=== PATIENT | female | born 1955 | race Caucasian/White ===

== ENCOUNTER 2016-07-30 18:54 | Emergency (ER) | payer OTHER ==
[~2016-07-30] VITALS: Ht 152.4 cm; Wt 65.0 kg
[~2016-07-30 18:54] MED LIST: LISI-360 PO; ZOLP10TA3 OR
[2016-07-30 18:56] VITALS: BP 182/87; PULSE 71; RESP 18; TEMP 97.7; O2SAT 100
--- NOTE | 2016-07-30 19:08 | PD ---
Physical Exam Time Seen by Provider: 19:06 Narrative 60yo F c/o lower abd pain and rectal bleeding that started at approx 1pm today. Hx of hemorrhoids but nothing like this in the past. Denies F,N,V. Patient seen in triage. VS reviewed. Awaiting bed placement. Data Data Last Documented VS Vital Signs Date Time Temp Pulse Resp B/P Pulse Ox O2 Delivery O2 Flow Rate FiO2 07/30/16 18:56 97.7 71 18 182/87 100 Room Air MDM Supervised Visit with BRIONNA: Sanna Santana July 30, 2016 19:08
[2016-07-30] MEDS ORDERED: ZOLP10TA3 PO (19:32)
[2016-07-30] MEDS ORDERED: LISI10TA3 PO (19:32)
[2016-07-30] MEDS ORDERED: ATOR20TA15 PO (19:32)
[2016-07-30] MEDS ORDERED: SODIUM CHLOR 0.9% 1000 ML INJ 1,000 ML IV SCH (19:34)
[2016-07-30] MEDS ORDERED: CHOL1CAP32 (19:35)
[2016-07-30] MEDS ORDERED: FIBECHW (19:35)
[2016-07-30] MEDS ORDERED: FISH1200 (19:35)
[2016-07-30] MEDS ORDERED: MULT-112 (19:35)
[2016-07-30] MEDS ORDERED: INUL6.5C (19:35)
[2016-07-30] MEDS ORDERED: MULT-65 PO (19:35)
[2016-07-30] MEDS ORDERED: MELA1TAB18 PO (19:35)
[2016-07-30] MEDS ORDERED: MELA3TAB (19:35)
[2016-07-30] MEDS ORDERED: MORPHINE SULFATE 4 MG/ML INJ IV PUSH ONE (19:45)
[2016-07-30] MEDS ORDERED: ONDANSETRON HCL 4 MG/2 ML VIAL IVP ONE (19:45)
[2016-07-30] MEDS ORDERED: SODIUM CHLORIDE 0.9% FLUSH 10 ML FLUSH IV FLUSH PRN (19:45)
[2016-07-30 20:02] LABS: AUTOMATED NEUTROPHIL # 16.6 TH/MM3 (1.8-7.7); BASOPHIL # 0.1 TH/MM3 (0-0.2); BASOPHIL % 0.5 % (0.0-2.0); EOSINOPHIL % 0.1 % (0.0-4.0); HEMATOCRIT 42.7 % (35.0-46.0); HEMO FLAGS DIFF FINAL; LYMPH % 11.4 % (9.0-44.0); LYMPHOCYTE # 2.3 TH/MM3 (1.0-4.8); MEAN CORPUSCULAR HEMOGLOBIN 31.2 PG (27.0-34.0); MEAN CORPUSCULAR HGB CONC 33.5 % (32.0-36.0); MONO % 6.3 % (0.0-8.0); NEUT % 81.7 % (16.0-70.0); PLATELET COUNT 437 TH/MM3 (150-450); RED BLOOD COUNT 4.59 MIL/MM3 (4.00-5.30); WHITE BLOOD COUNT 20.4 TH/MM3 (4.0-11.0)
[2016-07-30 20:10] LABS: APTT (PATIENT) 25.4 SEC (24.3-30.1); PROTHROMBIN TIME - PATIENT 10.5 SEC (9.8-11.6)
--- NOTE | 2016-07-30 20:17 | PD ---
HPI Chief Complaint: GI Complaint Time Seen by Provider: 19:17 Travel History International Travel<30 days: No Contact w/Intl Traveler<30days: No Traveled to known affect area: No History of Present Illness HPI Patient is a 60-year-old female who presents to emergency room with complaints of lower abdominal pain. Patient reports that she has been having increased lower abdominal pain since this afternoon. Patient reports that she was riding her bike and had severe lower abdominal pain, reports that she went home and had a bowel movement. Patient reports that she had a normal bowel movement which was light brown in color, reports that shortly thereafter, she had the urge to use the bathroom again and reports that she had a bloody bowel movement. Reports that she had bright red blood in her stools. Patient reports that she continues to have lower abdominal crampy pain. Patient reports no nausea or vomiting, denies fevers or chills. Denies any constipation or diarrhea. Patient that she initially reported having severe pelvic pain, patient reports that she really has lower abdominal pain. Patient has had a colonoscopy last year in October, patient was found to have hemorrhoids and otherwise benign colonoscopy. Patient's naphthalene still operator is Dr. Raymundo. Patient denies vaginal discharge or bleeding. Denies dysuria/ urgency/frequency. PFSH Past Medical History High Cholesterol: Yes Diabetes: Yes (diet controlled) Patient Takes Glucophage: No Gastrointestinal Disorders: Yes (internal hemorrhoids) Hypertension: Yes Insomnia: Yes : 2 Para: 2 Past Surgical History Section: Yes (x2) Other Surgery: Yes (spleenectomy, partial pancreas removal) Social History Alcohol Use: No Tobacco Use: No Substance Use: No Allergies-Medications (Allergen,Severity, Reaction): Coded Allergies: No Known Allergies (Unverified , 07/30/16) Reported Meds & Prescriptions Reported Meds & Active Scripts Active Reported Melatonin 10 Mg Tab 10 Mg PO HS PRN Vision Formula/Lutein (Multiple Vitamins W/ Minerals) 1 Tab Tab D3-1000 (Cholecalciferol) 1,000 Unit Cap Fish Oil 1200 mg (Sproul-3 Fatty Acids) 1 Cap Cap Fiber Select Gummies (Fiber) 1 Chw Chw Multi-Vitamin Daily (Multiple Vitamin) 1 Tab Tab 1 Tab PO DAILY Atorvastatin (Atorvastatin Calcium) 20 Mg Tab 20 Mg PO HS Zolpidem (Zolpidem Tartrate) 10 Mg Tab 10 Mg PO HS PRN Lisinopril 10 Mg Tab 10 Mg PO DAILY Review of Systems General / Constitutional: No: Fever, Chills Eyes: No: Visual changes HENT: No: Headaches Cardiovascular: No: Chest Pain or Discomfort Respiratory: No: Shortness of Breath Gastrointestinal: Positive: Abdominal Pain, Hematochezia, No: Nausea, Vomiting , Diarrhea Genitourinary: No: Dysuria Musculoskeletal: No: Pain Skin: No Rash Neurologic: No: Weakness Psychiatric: No: Depression Endocrine: No: Polydipsia Hematologic/Lymphatic: No: Easy Bruising Physical Exam Narrative GENERAL: mild distress SKIN: Focused skin assessment warm/dry. HEAD: Atraumatic. Normocephalic. EYES: Pupils equal and round. No scleral icterus. No injection or drainage. ENT: No nasal bleeding or discharge. Mucous membranes pink and moist. NECK: Trachea midline. No JVD. CARDIOVASCULAR: Regular rate and rhythm. No murmur appreciated. RESPIRATORY: No accessory muscle use. Clear to auscultation. Breath sounds equal bilaterally. GASTROINTESTINAL: Abdomen soft, tenderness to lower abdomen with no rebound or guarding Rectal exam: nonthrombosed external hemorrhoids, mildly heme positive mucousy blood tinged stool which is light brown MUSCULOSKELETAL: No obvious deformities. No clubbing. No cyanosis. No edema. NEUROLOGICAL: Awake and alert. No obvious cranial nerve deficits. Motor grossly within normal limits. Normal speech. PSYCHIATRIC: Appropriate mood and affect; insight and judgment normal. Data Data Last Documented VS Vital Signs Date Time Temp Pulse Resp B/P Pulse Ox O2 Delivery O2 Flow Rate FiO2 07/30/16 19:08 16 07/30/16 18:56 97.7 71 182/87 100 Room Air Orders Complete Blood Count With Diff (07/30/16 19:34) Comprehensive Metabolic Panel (07/30/16 19:34) Lipase (07/30/16 19:34) Prothrombin Time / Inr (Pt) (07/30/16 19:34) Act Partial Throm Time (Ptt) (07/30/16 19:34) Urinalysis - C+S If Indicated (07/30/16 19:34) Ct Abd/Pel W Iv Contrast(Rout) (07/30/16 19:34) Iv Access Insert/Monitor (07/30/16 19:34) Morphine Inj (Morphine Inj) (07/30/16 19:45) Ondansetron Inj (Zofran Inj) (07/30/16 19:45) Sodium Chlor 0.9% 1000 Ml Inj (Ns 1000 M (07/30/16 19:34) Sodium Chloride 0.9% Flush (Ns Flush) (07/30/16 19:45) Urine Culture (07/30/16 20:20) Acetaminophen (Tylenol) (07/30/16 21:00) Ceftriaxone Inj (Rocephin Inj) (07/30/16 21:00) Sodium Chlor 0.9% 1000 Ml Inj (Ns 1000 M (07/30/16 21:30) Metronidazole 500 Mg Inj (Flagyl 500 Mg (07/30/16 21:30) Labs Laboratory Tests Test 07/30/16 07/30/16 19:45 20:20 White Blood Count 20.4 TH/MM3 Red Blood Count 4.59 MIL/MM3 Hemoglobin 14.3 GM/DL Hematocrit 42.7 % Mean Corpuscular Volume 93.0 FL Mean Corpuscular Hemoglobin 31.2 PG Mean Corpuscular Hemoglobin 33.5 % Concent Red Cell Distribution Width 13.0 % Platelet Count 437 TH/MM3 Mean Platelet Volume 8.6 FL Neutrophils (%) (Auto) 81.7 % Lymphocytes (%) (Auto) 11.4 % Monocytes (%) (Auto) 6.3 % Eosinophils (%) (Auto) 0.1 % Basophils (%) (Auto) 0.5 % Neutrophils # (Auto) 16.6 TH/MM3 Lymphocytes # (Auto) 2.3 TH/MM3 Monocytes # (Auto) 1.3 TH/MM3 Eosinophils # (Auto) 0.0 TH/MM3 Basophils # (Auto) 0.1 TH/MM3 CBC Comment DIFF FINAL Differential Comment Prothrombin Time 10.5 SEC Prothromb Time International 1.0 RATIO Ratio Activated Partial 25.4 SEC Thromboplast Time Sodium Level 138 MEQ/L Potassium Level 4.0 MEQ/L Chloride Level 104 MEQ/L Carbon Dioxide Level 25.6 MEQ/L Anion Gap 8 MEQ/L Blood Urea Nitrogen 29 MG/DL Creatinine 0.99 MG/DL Estimat Glomerular Filtration 57 ML/MIN Rate Random Glucose 101 MG/DL Calcium Level 9.7 MG/DL Total Bilirubin 0.5 MG/DL Aspartate Amino Transf 29 U/L (AST/SGOT) Alanine Aminotransferase 37 U/L (ALT/SGPT) Alkaline Phosphatase 83 U/L Total Protein 7.9 GM/DL Albumin 4.3 GM/DL Lipase 128 U/L Urine Color YELLOW Urine Turbidity HAZY Urine pH 5.0 Urine Specific [place] 1.022 Urine Protein TRACE mg/dL Urine Glucose (UA) NEG mg/dL Urine Ketones 40 mg/dL Urine Occult Blood SMALL Urine Nitrite NEG Urine Bilirubin NEG Urine Urobilinogen LESS THAN 2.0 MG/DL Urine Leukocyte Esterase LARGE Urine RBC 12 /hpf Urine WBC /hpf Urine Squamous Epithelial 1 /hpf Cells Urine Transitional Epithelial 1 /hpf Cells Urine Calcium Oxalate Crystals MANY /hpf Urine Amorphous Sediment RARE Urine Hyaline Casts 3 /lpf Urine Mucus FEW /lpf Microscopic Urinalysis Comment CULTURE INDICATED MDM Medical Decision Making Medical Screen Exam Complete: Yes Emergency Medical Condition: Yes Interpretation(s) Vital Signs Date Time Temp Pulse Resp B/P Pulse Ox O2 Delivery O2 Flow Rate FiO2 07/30/16 19:08 16 07/30/16 18:56 97.7 71 18 182/87 100 Room Air Differential Diagnosis GI bleed, external hemorrhoids, colitis, anemia, cystitis Narrative Course Patient is a 60-year-old female who presents to emergency room with complaints of low abdominal pain with bright red blood per rectum. She reports that symptoms began around 1 PM today, reports that she is feeling little better at this time but still has intermittent lower abdominal cramping. On exam, patient does have lower abdominal tenderness with no rebound or guarding. Her rectal exam shows heme positive bright red tinged mucousy light brown stool. Patient does have external hemorrhoids on exam which are nonthrombosed with no active bleeding this time. Plan to obtain lab work, obtain CT of the abdomen and pelvis for further evaluation symptoms. Vital Signs Date Time Temp Pulse Resp B/P Pulse Ox O2 Delivery O2 Flow Rate FiO2 07/30/16 19:08 16 07/30/16 18:56 97.7 71 18 182/87 100 Room Air Laboratory Tests Test 07/30/16 07/30/16 19:45 20:20 White Blood Count 20.4 TH/MM3 (4.0-11.0) Red Blood Count 4.59 MIL/MM3 (4.00-5.30) Hemoglobin 14.3 GM/DL (11.6-15.3) Hematocrit 42.7 % (35.0-46.0) Mean Corpuscular Volume 93.0 FL (80.0-100.0) Mean Corpuscular Hemoglobin 31.2 PG (27.0-34.0) Mean Corpuscular Hemoglobin 33.5 % Concent (32.0-36.0) Red Cell Distribution Width 13.0 % (11.6-17.2) Platelet Count 437 TH/MM3 (150-450) Mean Platelet Volume 8.6 FL (7.0-11.0) Neutrophils (%) (Auto) 81.7 % (16.0-70.0) Lymphocytes (%) (Auto) 11.4 % (9.0-44.0) Monocytes (%) (Auto) 6.3 % (0.0-8.0) Eosinophils (%) (Auto) 0.1 % (0.0-4.0) Basophils (%) (Auto) 0.5 % (0.0-2.0) Neutrophils # (Auto) 16.6 TH/MM3 (1.8-7.7) Lymphocytes # (Auto) 2.3 TH/MM3 (1.0-4.8) Monocytes # (Auto) 1.3 TH/MM3 (0-0.9) Eosinophils # (Auto) 0.0 TH/MM3 (0-0.4) Basophils # (Auto) 0.1 TH/MM3 (0-0.2) CBC Comment DIFF FINAL Differential Comment Prothrombin Time 10.5 SEC (9.8-11.6) Prothromb Time International 1.0 RATIO Ratio Activated Partial 25.4 SEC Thromboplast Time (24.3-30.1) Sodium Level 138 MEQ/L (136-145) Potassium Level 4.0 MEQ/L (3.5-5.1) Chloride Level 104 MEQ/L (98-107) Carbon Dioxide Level 25.6 MEQ/L (21.0-32.0) Anion Gap 8 MEQ/L (5-15) Blood Urea Nitrogen 29 MG/DL (7-18) Creatinine 0.99 MG/DL (0.50-1.00) Estimat Glomerular Filtration 57 ML/MIN (>89) Rate Random Glucose 101 MG/DL (74-106) Calcium Level 9.7 MG/DL (8.5-10.1) Total Bilirubin 0.5 MG/DL (0.2-1.0) Aspartate Amino Transf 29 U/L (15-37) (AST/SGOT) Alanine Aminotransferase 37 U/L (10-53) (ALT/SGPT) Alkaline Phosphatase 83 U/L (45-117) Total Protein 7.9 GM/DL (6.4-8.2) Albumin 4.3 GM/DL (3.4-5.0) Lipase 128 U/L (73-393) Urine Color YELLOW (YELLW/STRAW) Urine Turbidity HAZY (CLEAR) Urine pH 5.0 (5.0-8.5) Urine Specific [place] 1.022 (1.002-1.035) Urine Protein TRACE mg/dL (NEG-TRACE) Urine Glucose (UA) NEG mg/dL (NEG) Urine Ketones 40 mg/dL (NEG) Urine Occult Blood SMALL (NEG) Urine Nitrite NEG (NEG) Urine Bilirubin NEG (NEG) Urine Urobilinogen LESS THAN 2.0 MG/DL (LESS THAN 2.0) Urine Leukocyte Esterase LARGE (NEG) Urine RBC 12 /hpf (0-3) Urine WBC /hpf (0-5) Urine Squamous Epithelial 1 /hpf (0-5) Cells Urine Transitional Epithelial 1 /hpf (NONE) Cells Urine Calcium Oxalate Crystals MANY /hpf (NONE) Urine Amorphous Sediment RARE Urine Hyaline Casts 3 /lpf (RARE) Urine Mucus FEW /lpf (OCC) Microscopic Urinalysis Comment CULTURE INDICATED CT of the abdomen and pelvis shows 1) colitis, 2)indeterminate low density liver lesion, 3) renal cysts A copy of pt's study was given to her. Patient reports that she does get MRIs of her abdomen every year because of her pancreas, reports that she was told of these low-density liver lesions in the past. Patient will bring the copy of her CT report her doctor's office for follow-up. Patient does have colitis on CT of her abdomen and pelvis, she does have a white blood cell count of 20,000. I did offer patient inpatient admission for treatment of colitis versus outpatient therapy with antibiotics. Patient request to be discharged to home with trail antibiotics. I did review with patient in detail signs and symptoms of acute abdomen. Patient will return to emergency room immediately should she develop any of these symptoms. Patient understands need to follow-up with her primary care doctor as well as her naphthalene still operator as soon as possible. Diagnosis Primary Impression: Colitis Additional Impressions: UTI (urinary tract infection) Qualified Code: N30.01 - Acute cystitis with hematuria Liver lesion Renal cyst Patient Instructions: General Instructions Additional Instructions: Please stop with your primary care doctor as well as your naphthalene still operator in 1-2 days Please return to the emergency room if symptoms worsen or progress or if you develop fevers or chills Please eat a bland diet Please bring your CT study to your doctor's office for follow up on all studies from today Med/Other Pt SpecificInfo: Prescription(s) given Scripts Metronidazole (Flagyl)500 Mg Act803 Mg PO QID 10 Days Ref 0 Prov:Tamiko Cummings DO 07/30/16 Ciprofloxacin 500 Mg Lap532 Mg PO BID 10 Days Ref 0 Prov:Tamiko Cummings DO 07/30/16 Disposition: 01 DISCHARGE HOME Condition: Stable Tamiko Cummings DO July 30, 2016 20:17
[2016-07-30 20:24] LABS: ANION GAP 8 MEQ/L (5-15); AST (GOT) 29 U/L (15-37); BICARBONATE 25.6 MEQ/L (21.0-32.0); BLOOD UREA NITROGEN 29 MG/DL (7-18); CHLORIDE 104 MEQ/L (98-107); GLOMERULAR FILTRATION RATE 57 ML/MIN (>89); SODIUM (NA) 138 MEQ/L (136-145)
[2016-07-30 20:28] LABS: ALKALINE PHOSPHATASE 83 U/L (45-117); ALT (GPT) 37 U/L (10-53); TOTAL BILIRUBIN ADULT 0.5 MG/DL (0.2-1.0)
[2016-07-30] MEDS ORDERED: IOHEXOL 350 MG/ML 10 ML VIAL (for RAD DIAG) IV ONE (20:39)
[2016-07-30 20:40] LABS: BLOOD, URINE SMALL (NEG); CALCIUM OXALATE CRYSTALS,URINE MANY /hpf; COMMENT (UR) CULTURE INDICATED; CULTURE IF INDICATED CULTURE INDICATED; GLUCOSE,URINE NEG (NEG); HYALINE CAST, URINE 3 /lpf (RARE); KETONE, URINE 40 mg/dL (NEG); MUCUS URINE FEW /lpf (OCC); NITRITE,URINE NEG (NEG); SQUAMOUS EPITHELIAL CELL URINE 1 /hpf (0-5); TRANSITIONAL EPI CELLS, URINE 1 /hpf; URINE COLOR YELLOW (YELLW/STRAW)
[2016-07-30] MEDS ORDERED: cefTRIAXone INJ 1,000 MG in SODIUM CHLORIDE 0.9% INJ 100 ML IV ONE (21:00)
[2016-07-30] MEDS ORDERED: ACETAMINOPHEN 325 MG TAB PO ONE (21:00)
--- NOTE | 2016-07-30 21:25 | RADRPT ---
EXAM DATE/TIME: 07/30/2016 20:39 [facility] COMPARISON: No previous studies available for comparison. INDICATIONS : Severe pelvic pain with rectal bleeding . IV CONTRAST: 80 cc Omnipaque 350 (iohexol) IV ORAL CONTRAST: No oral contrast ingested. RADIATION DOSE: 10.08 CTDIvol (mGy) MEDICAL HISTORY : Hypertension. Diabetes mellitus type 2. SURGICAL HISTORY : Splenectomy. Partial pancreas ENCOUNTER: Initial ACUITY: 1 day PAIN SCALE: 8/10 LOCATION: lower quadrant Abdomen TECHNIQUE: Volumetric scanning of the abdomen and pelvis was performed. Using automated exposure control and ad justment of the mA and/or kV according to patient size, radiation dose was kept as low as reasonably achievable to obtain optimal diagnostic quality images. FINDINGS: There is a low-density lesion in the right lobe of the liver anteriorly measuring 1.2, characterized on this study. Gallbladder, adrenal glands, stomach are unremarkable. The patient is status post part ial pancreatectomy and splenectomy. There is an exophytic cyst at the lower pole of the left kidney m easuring 2.5 cm. There are 2 small exophytic cyst at the lower pole of the right knee measuring 1.3 c m in maximal dimension, and a right mid pole 6.8 mm cyst. Atherosclerotic calcification of the aorta and iliac vessels. Urinary bladder, uterus and adnexa are unremarkable. There is circumferential cuca l wall thickening involving the colon from the rectum to the ascending colon. This is characteristic of colitis. Lung bases are clear. Osseous structures are intact. CONCLUSION: 1. Colitis. 2. Indeterminate low-density liver lesion can be further characterized with MRI of the abdomen with a nd without contrast on a nonemergent outpatient basis. 3. Renal cysts. Marc Burns MD on July 30, 2016 at 21:20 Board Certified Radiologist. This report was verified electronically.
[2016-07-30] MEDS ORDERED: metroNIDAZOLE 500 MG INJ 100 ML IV ONE (21:30)
[2016-07-30] MEDS ORDERED: SODIUM CHLOR 0.9% 1000 ML INJ 1,000 ML IV ONE (21:30)
[2016-07-30] MEDS ORDERED: CIPR500T2 PO (21:39)
[2016-07-30] MEDS ORDERED: METR-1 PO (21:39)
== END 2016-07-30 22:35 | disposition home or self-care (01) ==
LOC: NEPC 18:54
DX: K52.9 Noninfective gastroenteritis and colitis, unspecified (principal); N30.01 Acute cystitis with hematuria; K76.9 Liver disease, unspecified; N28.1 Cyst of kidney, acquired; K64.9 Unspecified hemorrhoids; E78.00 Pure hypercholesterolemia, unspecified; I10 Essential (primary) hypertension; K62.5 Hemorrhage of anus and rectum; B96.89 Other specified bacterial agents as the cause of diseases classified elsewhere
CPT/HCPCS: 74177; 80053; 81001; 83690; 85025; 85610; 85730; 87086; 96361; 96365; 96375; 99285; J0696; J7030; Q9967